=== PATIENT | male | born 1980 | race Caucasian/White ===

== ENCOUNTER 2019-03-13 09:50 | Day surgery (SDC) | payer OTHER | END 2019-03-13 13:30 | disposition home or self-care (01) | LOC: AMB-ENDOS 09:50 | DX: D12.4 Benign neoplasm of descending colon (principal) ==

== ENCOUNTER 2019-04-23 07:27 | Day surgery (SDC) | payer OTHER ==
[2019-04-23] MEDS ORDERED: PERCOCET 5-3251 EACH PO (10:51)
[2019-04-23] MEDS ORDERED: RECTICARE30 GM TOP (10:52)
== END 2019-04-23 14:30 | disposition home or self-care (01) ==
LOC: CIR.AMB 07:27
DX: K60.3 Anal fistula (principal)

== ENCOUNTER 2019-07-26 08:50 | Day surgery (SDC) | payer OTHER ==
[~2019-07-26 08:50] MED LIST: PERCOCET 5-3251 EACH PO; RECTICARE30 GM TOP
[2019-07-26] MEDS ORDERED: PERCOCET 5-3251 EACH PO (11:57)
== END 2019-07-26 16:05 | disposition home or self-care (01) ==
LOC: CIR.AMB 08:50
DX: K60.3 Anal fistula (principal)